=== PATIENT | female | born 1970 | race Caucasian/White ===

== ENCOUNTER 2020-11-26 16:25 | Inpatient (IN) | payer OTHER ==
[~2020-11-26 16:25] MED LIST: Iopamidol 370 76% 50 ML VIAL FS ONE
[2020-11-26] MEDS ORDERED: Boostrix 0.5 ML (Tdap) VIAL ONE (16:31)
[2020-11-26] MEDS ORDERED: Calcium Chloride 1 GM/10 ML Abboject SYRINGE ONE (16:39)
[2020-11-26 16:44] LABS: #Eosinphils 0.2 thou/uL (0.0-0.7); #Lymphocytes 1.7 thou/uL (1.20-3.40); #Monocytes 1.1 thou/uL (0.11-0.59); #Neutrophils 14.2 thou/uL (1.40-6.50); %Basophils 0.3 % (0.0-1.0); %Eosinophils 1.4 % (0.0-10.0); %Lymphocytes 10.1 % (21.0-51.0); %Monocytes 6.1 % (0.0-10.0); %Neutrophils 82.2 % (42.0-75.0); Hemoglobin 12.2 g/dL (12.0-16.0); Mean Corpuscular HGB CONC 34.2 g/dL (32.0-36.0); Mean Corpuscular Hemoglobin 33.8 pg (27.0-31.0); Mean Corpuscular Volume 98.9 fL (78.0-98.0); Mean Platelet Volume 7.9 fL (7.4-10.4); Platelet Count 240 thou/uL (130-400); RBC Distribution Width 10.5 % (11.5-14.5); Red Blood Cell (RBC) Count 3.62 mill/uL (4.20-5.40); White Blood Cell (WBC) Count 17.2 thou/uL (4.8-10.8)
[2020-11-26] MEDS ORDERED: Vecuronium 10 MG VIAL ONE (16:46)
[2020-11-26] MEDS ORDERED: Fentanyl 100 MCG/2 ML VIAL ONE ×2 (16:46→18:18)
[2020-11-26] MEDS ORDERED: Midazolam HCl 5 mg/ml Vial ONE (16:46)
[2020-11-26 17:00] LABS: INR-International Normal Ratio 1.1; PTT 24.5 sec (22.9-36.1); Prothrombin Time 14.2 sec (12.0-14.7)
[2020-11-26 17:02] LABS: ALT (SGPT) 32 U/L (8-55); AST (SGOT) 62 U/L (5-34); Albumin 3.4 g/dL (3.5-5.0); Alkaline Phosphatase 54 U/L (40-110); Anion Gap 15 mmol/L (10-20); BUN (Urea Nitrogen) 15 mg/dL (9.8-20.1); Bilirubin, Total 0.4 mg/dL (0.2-1.2); Calc. Creatinine Clearance 0 mL/min (70-130); Calcium 8.4 mg/dL (7.8-10.44); Carbon Dioxide 22 mmol/L (22-29); Chloride 106 mmol/L (98-107); Globulin 2.4 g/dL (2.4-3.5); Glucose 162 mg/dL (70-105); Potassium 3.6 mmol/L (3.5-5.1); Protein, Total 5.8 g/dL (6.0-8.3); Sodium 139 mmol/L (136-145)
[2020-11-26 17:03] LABS: Acetaminophen Less than 6.0 mcg/mL (10.0-30.0); Alcohol Less than 10 mg/dL (Less than 10); CK (CPK) 487 U/L (29-168); Salicylate Less than 8.0 mg/dL (15.0-30.0)
[2020-11-26 17:16] LABS: Analyzer IN Cardio ER; Base Excess (BEa) -3.4 mEq/L (-2.0 to +3.0); Carboxyhemoglobin (COHb) 0.3 gm% (0.0-3.0); Hemoglobin (Hb) 12.6 g/dL (12.0-16.0); O2 Tension (PaO2), arterial 385.6 mmHg (80.0-100.0); Potassium - ABG Lab 3.31 mmol/L (3.70-5.30); pH, Arterial 7.43 (7.35-7.45)
[2020-11-26 17:17] LABS: Puncture Site RRA
[2020-11-26 17:40] LABS: Bilirubin Negative (Negative); Blood, Urine 2+ (Negative); Clarity Turbid (Clear); Glucose, Urine (Dipstick) 70 mg/dL (Negative); Ketone, Urine Negative (Negative); Leukocyte Negative Leu/uL (Negative); Nitrite Negative (Negative); Protein, Urine (Dipstick) 100 mg/dL (Neg-Trace); Specific Gravity, Urine 1.021 (1.002-1.036); Squamous Epithelial None Seen HPF (0-3); Urobilinogen Normal mg/dL (Less than 2)
[2020-11-26 17:41] LABS: Bacteria/HPF 1+ HPF (None Seen)
[2020-11-26] MEDS ORDERED: Dextrose 50% Abboject 50 ML SYRINGE SLOW IVP PRN (18:07)
[2020-11-26] MEDS ORDERED: Ondansetron PF 4 MG/2 ML Vial IVP PRN (18:07)
[2020-11-26] MEDS ORDERED: hydrALAZINE 20 MG/ML VIAL SLOW IVP PRN (18:07)
[2020-11-26] MEDS ORDERED: Dextrose 5% in Water 1,000 ML IV PRN (18:07)
[2020-11-26] MEDS ORDERED: Ventilator Sedation Protocol 1 EACH FS ONE (18:19)
[2020-11-26] MEDS ORDERED: Acetaminophen 650 MG Suppository PR PRN (18:20)
[2020-11-26] MEDS ORDERED: DISCONTINUE PREVIOUS NARCOTIC PAIN MEDICATIONS AND BENZODIAZEPINES FS SCH (18:30)
[2020-11-26] MEDS ORDERED: Fentanyl CADD 100 ML IV SCH (18:30)
[2020-11-26] MEDS ORDERED: Propofol 1,000 MG/100 ML VIAL IV PRN (18:30)
[2020-11-26] MEDS ORDERED: Morphine 2 MG/ML VIAL SLOW IVP PRN (18:30)
[2020-11-26] MEDS ORDERED: Fentanyl BOLUS 250 ML IVPB PRN (18:30)
[2020-11-26] MEDS ORDERED: Lorazepam 2 MG/ML VIAL SLOW IVP PRN (18:30)
[2020-11-26] MEDS ORDERED: Propofol BOLUS 1,000 MG/100 ML VIAL IV PRN (18:30)
[2020-11-26 18:37] LABS: SARS-CoV-2 NAA Rapid Test Not Detected (NotDetected)
[2020-11-26 18:43] LABS: Magnesium 1.7 mg/dL (1.6-2.6); Phosphorus 3.6 mg/dL (2.3-4.7)
[2020-11-26 19:45] LABS: Base Excess (BEa) -3.2 mEq/L (-2.0 to +3.0); Calcium, Ionized (arterial) 1.27 mmol/L (1.12-1.30); Carboxyhemoglobin (COHb) 0.3 gm% (0.0-3.0); Hemoglobin (Hb) 14.2 g/dL (12.0-16.0); O2 Tension (PaO2), arterial 143.6 mmHg (80.0-100.0); Potassium - ABG Lab 3.32 mmol/L (3.70-5.30); pH, Arterial 7.47 (7.35-7.45)
[2020-11-26] MEDS ORDERED: Famotidine 20 MG TAB PO SCH (21:00)
[2020-11-26] MEDS ORDERED: Fentanyl CADD 100 ML ONE (21:06)
[2020-11-26] MEDS: Sodium Chloride 0.9% 1,000 ML IV SCH (21:11)
[2020-11-26 22:58] LABS: Puncture Site RRA
[2020-11-27] MEDS: CEFAZOLIN 2 GM in Premix Bag 1 BAG IVPB SCH ×3 (00:31→16:51)
[2020-11-27] MEDS ORDERED: CEFAZOLIN 2 GM in Premix Bag 1 BAG IVPB SCH (01:00)
[2020-11-27] MEDS: Sodium Chloride 0.9% 1,000 ML IV SCH ×3 (03:34→20:07)
[2020-11-27 03:40] LABS: #Lymphocytes 0.6 thou/uL (1.20-3.40); #Monocytes 1.2 thou/uL (0.11-0.59); #Neutrophils 9.5 thou/uL (1.40-6.50); %Eosinophils 0.2 % (0.0-10.0); %Monocytes 10.3 % (0.0-10.0); %Neutrophils 84.6 % (42.0-75.0); Hemoglobin 12.1 g/dL (12.0-16.0); Mean Corpuscular HGB CONC 33.6 g/dL (32.0-36.0); Mean Corpuscular Hemoglobin 32.6 pg (27.0-31.0); Mean Corpuscular Volume 97.1 fL (78.0-98.0); Mean Platelet Volume 7.9 fL (7.4-10.4); Platelet Count 161 thou/uL (130-400); RBC Distribution Width 11.3 % (11.5-14.5); Red Blood Cell (RBC) Count 3.72 mill/uL (4.20-5.40); White Blood Cell (WBC) Count 11.2 thou/uL (4.8-10.8)
[2020-11-27 03:47] LABS: INR-International Normal Ratio 1.1; PTT 27.9 sec (22.9-36.1); Prothrombin Time 14.5 sec (12.0-14.7)
[2020-11-27 04:03] LABS: Phosphorus 4.3 mg/dL (2.3-4.7)
[2020-11-27 04:05] LABS: Anion Gap 13 mmol/L (10-20); BUN (Urea Nitrogen) 15 mg/dL (9.8-20.1); Calc. Creatinine Clearance 91 mL/min (70-130); Calcium 8.3 mg/dL (7.8-10.44); Carbon Dioxide 22 mmol/L (22-29); Chloride 108 mmol/L (98-107); Glucose 164 mg/dL (70-105); Magnesium 1.5 mg/dL (1.6-2.6); Potassium 3.4 mmol/L (3.5-5.1); Sodium 140 mmol/L (136-145)
[2020-11-27] MEDS: Magnesium 2 GM/50 ML 2 GM in Premix Bag 1 BAG IVPB SCH ×2 (06:28→07:52)
[2020-11-27] MEDS ORDERED: Potassium Chloride 40 MEQ in Premix Bag 1 BAG IVPB SCH (06:30)
[2020-11-27 07:54] LABS: Actual Bicarbonate (HCO3a) 21.7 mEq/L (22-28); Base Excess (BEa) -1.5 mEq/L (-2.0 to +3.0); Calcium, Ionized (arterial) 1.15 mmol/L (1.12-1.30); Carboxyhemoglobin (COHb) 0.2 gm% (0.0-3.0); Hemoglobin (Hb) 13.3 g/dL (12.0-16.0); O2 Tension (PaO2), arterial 116.5 mmHg (80.0-100.0); Potassium - ABG Lab 3.71 mmol/L (3.70-5.30); pH, Arterial 7.45 (7.35-7.45)
[2020-11-27 07:55] LABS: Puncture Site RRA
[2020-11-27] MEDS: Famotidine/PF 20 mg/2ml Vial SLOW IVP SCH ×2 (08:48→20:07)
[2020-11-27] MEDS ORDERED: Prevnar 13-Val Conj/PF 0.5 ML SYRINGE IM ONE (09:00)
[2020-11-27] MEDS ORDERED: Fentanyl 100 MCG/2 ML VIAL ONE (13:40)
[2020-11-27] MEDS ORDERED: PHENYLEPHRINE-NS 100 MCG/ML 10 ML SYRINGE ONE (14:10)
[2020-11-27] MEDS ORDERED: Rocuronium Bromide 10 MG/ML (10ML VIAL) ONE (14:10)
[2020-11-27] MEDS ORDERED: PROPOFOL 200 MG/20 ML VIAL ONE (14:10)
[2020-11-27] MEDS ORDERED: ePHEDrine Sulfate 50 MG/10 ML VIAL ONE (14:10)
[2020-11-28] MEDS: CEFAZOLIN 2 GM in Premix Bag 1 BAG IVPB SCH ×3 (01:15→17:36)
[2020-11-28] MEDS: Sodium Chloride 0.9% 1,000 ML IV SCH ×3 (04:59→20:00)
[2020-11-28 07:56] LABS: #Eosinphils 0.2 thou/uL (0.0-0.7); #Lymphocytes 0.9 thou/uL (1.20-3.40); #Monocytes 0.9 thou/uL (0.11-0.59); #Neutrophils 5.7 thou/uL (1.40-6.50); %Basophils 0.3 % (0.0-1.0); %Lymphocytes 11.4 % (21.0-51.0); %Monocytes 11.9 % (0.0-10.0); %Neutrophils 74.4 % (42.0-75.0); Hemoglobin 8.8 g/dL (12.0-16.0); Mean Corpuscular HGB CONC 33.2 g/dL (32.0-36.0); Mean Corpuscular Hemoglobin 32.8 pg (27.0-31.0); Mean Corpuscular Volume 98.7 fL (78.0-98.0); Platelet Count 131 thou/uL (130-400); RBC Distribution Width 11.5 % (11.5-14.5); Red Blood Cell (RBC) Count 2.67 mill/uL (4.20-5.40); White Blood Cell (WBC) Count 7.7 thou/uL (4.8-10.8)
[2020-11-28 08:11] LABS: Anion Gap 9 mmol/L (10-20); BUN (Urea Nitrogen) 11 mg/dL (9.8-20.1); Calc. Creatinine Clearance 116 mL/min (70-130); Calcium 7.6 mg/dL (7.8-10.44); Carbon Dioxide 22 mmol/L (22-29); Chloride 111 mmol/L (98-107); Glucose 170 mg/dL (70-105); Magnesium 2.4 mg/dL (1.6-2.6); Phosphorus 1.6 mg/dL (2.3-4.7); Potassium 3.8 mmol/L (3.5-5.1); Sodium 138 mmol/L (136-145)
[2020-11-28] MEDS: Famotidine/PF 20 mg/2ml Vial SLOW IVP SCH ×2 (08:49→20:00)
[2020-11-28] MEDS ORDERED: Potassium Phosphate 30 MMOL in Sodium Chloride 0.9% 250 ML 250 ML IVPB SCH (09:00)
[2020-11-28] MEDS ORDERED: Morphine 4 MG/ML VIAL SLOW IVP PRN ×2 (19:08→22:41)
[2020-11-28] MEDS ORDERED: Morphine 4 MG/ML VIAL SLOW IVP SCH (23:15)
[2020-11-29] MEDS: CEFAZOLIN 2 GM in Premix Bag 1 BAG IVPB SCH ×3 (01:24→17:19)
[2020-11-29] MEDS ORDERED: Morphine 4 MG/ML VIAL SLOW IVP PRN ×2 (01:28→02:18)
[2020-11-29 07:59] LABS: #Eosinphils 0.1 thou/uL (0.0-0.7); #Lymphocytes 0.9 thou/uL (1.20-3.40); #Monocytes 0.8 thou/uL (0.11-0.59); %Basophils 0.4 % (0.0-1.0); %Eosinophils 1.2 % (0.0-10.0); %Lymphocytes 10.3 % (21.0-51.0); %Neutrophils 79.2 % (42.0-75.0); Hemoglobin 8.6 g/dL (12.0-16.0); Mean Corpuscular HGB CONC 33.7 g/dL (32.0-36.0); Mean Corpuscular Hemoglobin 33.4 pg (27.0-31.0); Mean Corpuscular Volume 99.1 fL (78.0-98.0); Mean Platelet Volume 8.1 fL (7.4-10.4); Platelet Count 131 thou/uL (130-400); RBC Distribution Width 11.2 % (11.5-14.5); Red Blood Cell (RBC) Count 2.59 mill/uL (4.20-5.40); White Blood Cell (WBC) Count 8.8 thou/uL (4.8-10.8)
[2020-11-29 08:24] LABS: Anion Gap 11 mmol/L (10-20); BUN (Urea Nitrogen) 7 mg/dL (9.8-20.1); Calc. Creatinine Clearance 126 mL/min (70-130); Calcium 8.2 mg/dL (7.8-10.44); Carbon Dioxide 25 mmol/L (22-29); Chloride 111 mmol/L (98-107); Glucose 131 mg/dL (70-105); Magnesium 2.1 mg/dL (1.6-2.6); Phosphorus 1.1 mg/dL (2.3-4.7); Potassium 3.3 mmol/L (3.5-5.1); Sodium 144 mmol/L (136-145)
[2020-11-29] MEDS ORDERED: Potassium Phosphate 30 MMOL in Sodium Chloride 0.9% 250 ML 250 ML IVPB SCH (08:30)
[2020-11-29] MEDS: Famotidine/PF 20 mg/2ml Vial SLOW IVP SCH ×2 (09:09→20:26)
[2020-11-29] MEDS ORDERED: Morphine 4 MG/ML VIAL ONE ×3 (12:16→12:17)
[2020-11-29] MEDS ORDERED: Morphine 4 MG/ML VIAL SLOW IVP SCH (12:45)
[2020-11-29] MEDS: Sodium Chloride 0.9% 1,000 ML IV SCH (12:45)
[2020-11-30] MEDS: CEFAZOLIN 2 GM in Premix Bag 1 BAG IVPB SCH ×3 (00:52→16:47)
[2020-11-30 04:30] LABS: #Basophils 0.1 thou/uL (0.0-0.2); #Eosinphils 0.1 thou/uL (0.0-0.7); #Lymphocytes 1.3 thou/uL (1.20-3.40); #Monocytes 0.9 thou/uL (0.11-0.59); #Neutrophils 7.3 thou/uL (1.40-6.50); %Basophils 0.6 % (0.0-1.0); %Eosinophils 1.5 % (0.0-10.0); %Lymphocytes 13.5 % (21.0-51.0); %Monocytes 8.9 % (0.0-10.0); %Neutrophils 75.5 % (42.0-75.0); Hemoglobin 9.5 g/dL (12.0-16.0); Mean Corpuscular HGB CONC 33.4 g/dL (32.0-36.0); Mean Corpuscular Hemoglobin 32.7 pg (27.0-31.0); Mean Corpuscular Volume 97.9 fL (78.0-98.0); Mean Platelet Volume 7.8 fL (7.4-10.4); Platelet Count 191 thou/uL (130-400); RBC Distribution Width 11.1 % (11.5-14.5); Red Blood Cell (RBC) Count 2.89 mill/uL (4.20-5.40); White Blood Cell (WBC) Count 9.7 thou/uL (4.8-10.8)
[2020-11-30 05:17] LABS: Anion Gap 11 mmol/L (10-20); BUN (Urea Nitrogen) 7 mg/dL (9.8-20.1); Calc. Creatinine Clearance 124 mL/min (70-130); Carbon Dioxide 26 mmol/L (22-29); Chloride 107 mmol/L (98-107); Glucose 152 mg/dL (70-105); Magnesium 2.1 mg/dL (1.6-2.6); Phosphorus 1.5 mg/dL (2.3-4.7); Potassium 3.1 mmol/L (3.5-5.1); Sodium 141 mmol/L (136-145)
[2020-11-30] MEDS ORDERED: Potassium Phosphate 30 MMOL in Sodium Chloride 0.9% 250 ML 250 ML IVPB SCH (06:00)
[2020-11-30] MEDS: Sodium Chloride 0.9% 1,000 ML IV SCH (07:43)
[2020-11-30] MEDS: Famotidine/PF 20 mg/2ml Vial SLOW IVP SCH (07:44)
[2020-11-30] MEDS: Amantadine HCl 100 mg Capsule PO SCH ×2 (09:16→20:10)
[2020-11-30] MEDS: Famotidine 20 MG TAB PO SCH ×2 (09:16→20:10)
[2020-12-01] MEDS: CEFAZOLIN 2 GM in Premix Bag 1 BAG IVPB SCH ×3 (01:09→17:52)
[2020-12-01 04:33] LABS: Anion Gap 12 mmol/L (10-20); BUN (Urea Nitrogen) 13 mg/dL (9.8-20.1); Calc. Creatinine Clearance 122 mL/min (70-130); Calcium 9.1 mg/dL (7.8-10.44); Carbon Dioxide 27 mmol/L (22-29); Chloride 102 mmol/L (98-107); Glucose 165 mg/dL (70-105); Magnesium 1.8 mg/dL (1.6-2.6); Phosphorus 2.8 mg/dL (2.3-4.7); Sodium 138 mmol/L (136-145)
[2020-12-01] MEDS: Amantadine HCl 100 mg Capsule PO SCH ×2 (07:47→21:37)
[2020-12-01] MEDS: Famotidine 20 MG TAB PO SCH ×2 (07:47→21:37)
[2020-12-01] MEDS ORDERED: Magnesium 2 GM/50 ML 2 GM in Premix Bag 1 BAG IVPB SCH (08:45)
[2020-12-01] MEDS: Bisacodyl 5 MG TAB PO SCH (09:32)
[2020-12-01] MEDS: Potassium Chloride 20 MEQ in Premix Bag 1 BAG IVPB SCH ×2 (09:32→12:41)
[2020-12-01] MEDS: Docusate 100 MG CAP PO SCH ×2 (09:32→21:37)
[2020-12-01] MEDS ORDERED: Haloperidol Lactate 5 MG/ML VIAL SLOW IVP SCH (20:00)
[2020-12-02] MEDS: CEFAZOLIN 2 GM in Premix Bag 1 BAG IVPB SCH ×3 (00:10→18:29)
[2020-12-02] MEDS: Enoxaparin Sodium 40 MG/0.4 ML SYRINGE SC SCH (09:03)
[2020-12-02] MEDS: Docusate 100 MG CAP PO SCH ×2 (09:03→20:19)
[2020-12-02] MEDS: Saccharomyces boulardii 250 MG CAP PO SCH (09:03)
[2020-12-02] MEDS: Famotidine 20 MG TAB PO SCH ×2 (09:03→20:19)
[2020-12-02] MEDS: Bisacodyl 5 MG TAB PO SCH (09:03)
[2020-12-02] MEDS: Amantadine HCl 100 mg Capsule PO SCH ×2 (09:03→20:18)
[2020-12-02 11:54] LABS: #Eosinphils 0.2 thou/uL (0.0-0.7); #Lymphocytes 1.9 thou/uL (1.20-3.40); #Monocytes 1.1 thou/uL (0.11-0.59); #Neutrophils 7.9 thou/uL (1.40-6.50); %Basophils 0.4 % (0.0-1.0); %Eosinophils 1.8 % (0.0-10.0); %Lymphocytes 16.9 % (21.0-51.0); %Monocytes 10.2 % (0.0-10.0); %Neutrophils 70.7 % (42.0-75.0); Mean Corpuscular Hemoglobin 32.6 pg (27.0-31.0); Mean Corpuscular Volume 95.8 fL (78.0-98.0); Mean Platelet Volume 7.6 fL (7.4-10.4); Platelet Count 297 thou/uL (130-400); Red Blood Cell (RBC) Count 3.36 mill/uL (4.20-5.40); White Blood Cell (WBC) Count 11.1 thou/uL (4.8-10.8)
[2020-12-02 12:20] LABS: Anion Gap 12 mmol/L (10-20); BUN (Urea Nitrogen) 23 mg/dL (9.8-20.1); Calc. Creatinine Clearance 121 mL/min (70-130); Calcium 9.1 mg/dL (7.8-10.44); Carbon Dioxide 28 mmol/L (22-29); Chloride 101 mmol/L (98-107); Glucose 182 mg/dL (70-105); Magnesium 2.1 mg/dL (1.6-2.6); Phosphorus 3.6 mg/dL (2.3-4.7); Potassium 3.7 mmol/L (3.5-5.1); Sodium 137 mmol/L (136-145)
[2020-12-02] MEDS: Haloperidol Lactate 5 MG/ML VIAL SLOW IVP PRN (12:24)
[2020-12-02 16:15] LABS: RBC/HPF Greater than 50 HPF (0-3); Squamous Epithelial None Seen HPF (0-3)
[2020-12-02 16:17] LABS: Bilirubin Negative (Negative); Blood, Urine 1+ (Negative); Clarity Extra Turbid (Clear); Glucose, Urine (Dipstick) 30 mg/dL (Negative); Ketone, Urine Negative (Negative); Leukocyte 25 Leu/uL (Negative); Nitrite Negative (Negative); Protein, Urine (Dipstick) 100 mg/dL (Neg-Trace); Specific Gravity, Urine 1.029 (1.002-1.036); pH, Urine 6.5 (5.0-9.0)
[2020-12-02 16:31] LABS: Bacteria/HPF 2+ HPF (None Seen); Mucous/LPF Rare LPF (<2+); Yeast-Budding Rare HPF (None Seen)
[2020-12-02 16:32] LABS: Urine Culture Reflex Yes Yes
[2020-12-02] MEDS: Cefepime 2 GM in Sodium Chloride 0.9% 100 ML IVPB SCH (22:51)
[2020-12-03 05:37] LABS: #Basophils 0.1 thou/uL (0.0-0.2); #Eosinphils 0.3 thou/uL (0.0-0.7); #Lymphocytes 2.3 thou/uL (1.20-3.40); #Monocytes 1.3 thou/uL (0.11-0.59); #Neutrophils 8.3 thou/uL (1.40-6.50); %Basophils 0.7 % (0.0-1.0); %Eosinophils 2.6 % (0.0-10.0); %Lymphocytes 18.6 % (21.0-51.0); %Monocytes 10.3 % (0.0-10.0); %Neutrophils 67.9 % (42.0-75.0); Hemoglobin 10.9 g/dL (12.0-16.0); Mean Corpuscular HGB CONC 31.4 g/dL (32.0-36.0); Mean Corpuscular Hemoglobin 30.2 pg (27.0-31.0); Mean Corpuscular Volume 96.2 fL (78.0-98.0); Mean Platelet Volume 7.4 fL (7.4-10.4); Platelet Count 343 thou/uL (130-400); RBC Distribution Width 11.2 % (11.5-14.5); Red Blood Cell (RBC) Count 3.59 mill/uL (4.20-5.40); White Blood Cell (WBC) Count 12.2 thou/uL (4.8-10.8)
[2020-12-03 06:00] LABS: Anion Gap 13 mmol/L (10-20); BUN (Urea Nitrogen) 20 mg/dL (9.8-20.1); Calc. Creatinine Clearance 121 mL/min (70-130); Calcium 9.3 mg/dL (7.8-10.44); Carbon Dioxide 26 mmol/L (22-29); Chloride 104 mmol/L (98-107); Glucose 127 mg/dL (70-105); Phosphorus 3.5 mg/dL (2.3-4.7); Potassium 3.9 mmol/L (3.5-5.1); Sodium 139 mmol/L (136-145)
[2020-12-03] MEDS: Enoxaparin Sodium 40 MG/0.4 ML SYRINGE SC SCH (08:44)
[2020-12-03] MEDS ORDERED: Morphine 2 MG/ML VIAL SLOW IVP PRN (09:28)
[2020-12-03] MEDS ORDERED: Morphine 4 MG/ML VIAL SLOW IVP PRN (09:46)
[2020-12-03] MEDS: Amantadine HCl 100 mg Capsule PO SCH ×2 (14:40→21:01)
[2020-12-03] MEDS: Docusate 100 MG CAP PO SCH ×2 (14:41→21:01)
[2020-12-03] MEDS: Bisacodyl 5 MG TAB PO SCH (14:41)
[2020-12-03] MEDS: Saccharomyces boulardii 250 MG CAP PO SCH (14:42)
[2020-12-03] MEDS: Famotidine 20 MG TAB PO SCH ×2 (14:42→21:01)
[2020-12-03] MEDS: Cefepime 2 GM in Sodium Chloride 0.9% 100 ML IVPB SCH ×2 (14:45→21:01)
[2020-12-04] MEDS: Bisacodyl 5 MG TAB PO SCH (09:21)
[2020-12-04] MEDS: Famotidine 20 MG TAB PO SCH ×2 (09:21→20:54)
[2020-12-04] MEDS: Saccharomyces boulardii 250 MG CAP PO SCH (09:21)
[2020-12-04] MEDS: Amantadine HCl 100 mg Capsule PO SCH ×2 (09:21→20:54)
[2020-12-04] MEDS: Enoxaparin Sodium 40 MG/0.4 ML SYRINGE SC SCH (09:21)
[2020-12-04] MEDS: Cefepime 2 GM in Sodium Chloride 0.9% 100 ML IVPB SCH (09:22)
[2020-12-04] MEDS: Docusate Sodium 100 MG/10 ML UDCUP PO SCH ×2 (10:03→20:54)
[2020-12-04] MEDS: Docusate 100 MG CAP PO SCH (13:11)
[2020-12-04] MEDS: CEFAZOLIN 2 GM in Premix Bag 1 BAG IVPB SCH (16:08)
[2020-12-05] MEDS: CEFAZOLIN 2 GM in Premix Bag 1 BAG IVPB SCH ×4 (00:52→23:38)
[2020-12-05] MEDS: Saccharomyces boulardii 250 MG CAP PO SCH (09:11)
[2020-12-05] MEDS: Famotidine 20 MG TAB PO SCH (09:11)
[2020-12-05] MEDS: Docusate Sodium 100 MG/10 ML UDCUP PO SCH ×2 (09:11→20:18)
[2020-12-05] MEDS: Bisacodyl 5 MG TAB PO SCH (09:11)
[2020-12-05] MEDS: Enoxaparin Sodium 40 MG/0.4 ML SYRINGE SC SCH (09:12)
[2020-12-05] MEDS: Amantadine HCl 100 mg Capsule PO SCH ×2 (09:12→20:18)
[2020-12-06] MEDS: Docusate Sodium 100 MG/10 ML UDCUP PO SCH ×2 (09:55→20:39)
[2020-12-06] MEDS: Saccharomyces boulardii 250 MG CAP PO SCH (09:55)
[2020-12-06] MEDS: Bisacodyl 5 MG TAB PO SCH (09:55)
[2020-12-06] MEDS: Amantadine HCl 100 mg Capsule PO SCH ×2 (09:55→20:39)
[2020-12-06] MEDS: Enoxaparin Sodium 40 MG/0.4 ML SYRINGE SC SCH (09:55)
[2020-12-06] MEDS: CEFAZOLIN 2 GM in Premix Bag 1 BAG IVPB SCH ×3 (09:56→23:19)
[2020-12-06] MEDS: Bisacodyl 10 MG SUPP PR SCH (10:05)
[2020-12-06 13:38] VITALS: BMI 28.4
[2020-12-06] MEDS ORDERED: Acetaminophen 650 MG/20.3 ML UDCUP PO PRN (15:05)
[2020-12-06] MEDS: Haloperidol Lactate 5 MG/ML VIAL SLOW IVP PRN (22:34)
[2020-12-07] MEDS: Saccharomyces boulardii 250 MG CAP PO SCH (08:56)
[2020-12-07] MEDS: Amantadine HCl 100 mg Capsule PO SCH (08:56)
[2020-12-07] MEDS: Bisacodyl 10 MG SUPP PR SCH (08:57)
[2020-12-07] MEDS: Docusate Sodium 100 MG/10 ML UDCUP PO SCH (08:57)
[2020-12-07] MEDS: Bisacodyl 5 MG TAB PO SCH (08:58)
[2020-12-07] MEDS: Enoxaparin Sodium 40 MG/0.4 ML SYRINGE SC SCH (08:58)
[2020-12-07 12:27] VITALS: TEMP 98.5
[2020-12-07 15:42] VITALS: BP 131/84
[2020-12-08] MEDS ORDERED: Cephalexin 250 MG CAP PO SCH (06:00)
== END 2020-12-07 18:46 | DRG 957 ==
LOC: ERS 16:25 → CCU 16:59 → SURG A 12-01 13:55
PROVIDERS: ADMIT Surgery; ATTEND Surgery
PROC: 5A1945Z Respiratory Ventilation, 24-96 Consecutive Hours (ICD-10-PCS; 2020-11-26)
PROC: 30233N1 Transfusion of Nonautologous Red Blood Cells into Peripheral Vein, Percutaneous Approach (ICD-10-PCS; 2020-11-26)
PROC: 0D9670Z Drainage of Stomach with Drainage Device, Via Natural or Artificial Opening (ICD-10-PCS; 2020-11-26)
PROC: 02H633Z Insertion of Infusion Device into Right Atrium, Percutaneous Approach (ICD-10-PCS; 2020-11-26)
PROC: 0PSL04Z Reposition Left Ulna with Internal Fixation Device, Open Approach (ICD-10-PCS; principal; 2020-11-27)
PROC: 0PSJ04Z Reposition Left Radius with Internal Fixation Device, Open Approach (ICD-10-PCS; 2020-11-27)
PROC: 0DH67UZ Insertion of Feeding Device into Stomach, Via Natural or Artificial Opening (ICD-10-PCS; 2020-11-29)
DX: S52.612B Displaced fracture of left ulna styloid process, initial encounter for open fracture type I or II (principal); J96.00 Acute respiratory failure, unspecified whether with hypoxia or hypercapnia; S06.1X9A Traumatic cerebral edema with loss of consciousness of unspecified duration, initial encounter; S06.6X9A Traumatic subarachnoid hemorrhage with loss of consciousness of unspecified duration, initial encounter; R40.2111 Coma scale, eyes open, never, in the field [EMT or ambulance]; S06.5X9A Traumatic subdural hemorrhage with loss of consciousness of unspecified duration, initial encounter; R57.8 Other shock; R40.2311 Coma scale, best motor response, none, in the field [EMT or ambulance]; R40.2211 Coma scale, best verbal response, none, in the field [EMT or ambulance]; S12.000A Unspecified displaced fracture of first cervical vertebra, initial encounter for closed fracture; S12.100A Unspecified displaced fracture of second cervical vertebra, initial encounter for closed fracture; S02.40CA Maxillary fracture, right side, initial encounter for closed fracture; S02.40FA Zygomatic fracture, left side, initial encounter for closed fracture; S02.19XA Other fracture of base of skull, initial encounter for closed fracture; S36.892A Contusion of other intra-abdominal organs, initial encounter; S22.43XA Multiple fractures of ribs, bilateral, initial encounter for closed fracture; S27.0XXA Traumatic pneumothorax, initial encounter; S27.321A Contusion of lung, unilateral, initial encounter; G96.08 Other cranial cerebrospinal fluid leak; Z23 Encounter for immunization; Z20.822 Contact with and (suspected) exposure to COVID-19; S52.592B Other fractures of lower end of left radius, initial encounter for open fracture type I or II; T79.6XXA Traumatic ischemia of muscle, initial encounter; V49.88XA Car occupant (driver) (passenger) injured in other specified transport accidents, initial encounter; Y92.410 Unspecified street and highway as the place of occurrence of the external cause; Z78.1 Physical restraint status
CPT/HCPCS: 29125; 36415; 36416; 36430; 36600; 51702; 70450; 70486; 70498; 71045; 71260; 72125; 72141; 74018; 74177; 76000; 80048; 80053; 80307; 81001; 81003; 81015; 82550; 82805; 83605; 83735; 84100; 85025; 85610; 85730; 86850; 86900; 86901; 87086; 90471; 90715; 93970; 94002; 94003; 96365; 96375; C1713; G0390; J0690; J0692; J1630; J1650; J2250; J2270; J2704; J3010; J3475; J3480; J3490; J7050; P9016; Q9967; S0028; U0002

== ENCOUNTER 2020-12-17 01:47 | Inpatient (IN) | payer OTHER ==
[2020-12-17] MEDS ORDERED: Ondansetron PF 4 MG/2 ML Vial IVP PRN (03:12)
[2020-12-17] MEDS ORDERED: Acetaminophen 325 MG TAB PO PRN ×2 (03:13→11:22)
[2020-12-17] MEDS: Sodium Chloride 0.9% 1,000 ML IV SCH ×2 (03:19→15:55)
[2020-12-17 05:20] LABS: SARS-CoV-2 NAA Rapid Test Not Detected (NotDetected)
[2020-12-17 07:19] VITALS: BMI 24.2
[2020-12-17] MEDS ORDERED: CEFAZOLIN 2 GM in Premix Bag 1 BAG IVPB SCH (07:30)
[2020-12-17 07:35] LABS: #Basophils 0.1 thou/uL (0.0-0.2); #Eosinphils 0.2 thou/uL (0.0-0.7); #Monocytes 0.4 thou/uL (0.11-0.59); #Neutrophils 2.5 thou/uL (1.40-6.50); %Basophils 1.2 % (0.0-1.0); %Eosinophils 4.2 % (0.0-10.0); %Lymphocytes 24.1 % (21.0-51.0); %Monocytes 10.5 % (0.0-10.0); %Neutrophils 59.9 % (42.0-75.0); Hemoglobin 11.3 g/dL (12.0-16.0); Mean Corpuscular HGB CONC 34.1 g/dL (32.0-36.0); Mean Corpuscular Hemoglobin 33.9 pg (27.0-31.0); Mean Corpuscular Volume 99.4 fL (78.0-98.0); Mean Platelet Volume 7.2 fL (7.4-10.4); Platelet Count 427 thou/uL (130-400); RBC Distribution Width 12.2 % (11.5-14.5); Red Blood Cell (RBC) Count 3.34 mill/uL (4.20-5.40); White Blood Cell (WBC) Count 4.2 thou/uL (4.8-10.8)
[2020-12-17 07:54] LABS: Anion Gap 12 mmol/L (10-20); BUN (Urea Nitrogen) 9 mg/dL (9.8-20.1); CRP (Inflammatory) Less than 0.50 mg/dL (= or < 0.5); Calc. Creatinine Clearance 99 mL/min (70-130); Calcium 8.8 mg/dL (7.8-10.44); Carbon Dioxide 24 mmol/L (22-29); Chloride 107 mmol/L (98-107); Glucose 106 mg/dL (70-105); Potassium 3.5 mmol/L (3.5-5.1); Sodium 139 mmol/L (136-145)
[2020-12-17] MEDS ORDERED: Ondansetron ODT 4 MG TAB PO PRN (11:01)
[2020-12-17 11:29] LABS: Bacteria/HPF None Seen HPF (None Seen); Bilirubin Negative (Negative); Blood, Urine Negative (Negative); Clarity Clear (Clear); Glucose, Urine (Dipstick) Normal (Negative); Ketone, Urine Negative (Negative); Leukocyte 75 Leu/uL (Negative); Nitrite Negative (Negative); Protein, Urine (Dipstick) Negative (Neg-Trace); RBC/HPF 0-3 HPF (0-3); Specific Gravity, Urine 1.019 (1.002-1.036); Squamous Epithelial 0-3 HPF (0-3); Urobilinogen Normal mg/dL (Less than 2)
[2020-12-17 11:31] LABS: Urine Culture Reflex Yes Yes
[2020-12-17] MEDS: Methocarbamol 500 MG TAB PO SCH ×2 (15:51→20:17)
[2020-12-17] MEDS: Senokot 8.6 MG TAB PO SCH (15:53)
[2020-12-17] MEDS ORDERED: Dextrose 5% in Water 1,000 ML IV PRN (16:51)
[2020-12-17] MEDS ORDERED: Dextrose 50% Abboject 50 ML SYRINGE SLOW IVP PRN (16:51)
[2020-12-17] MEDS ORDERED: hydrALAZINE 20 MG/ML VIAL SLOW IVP PRN (16:51)
[2020-12-17] MEDS: Amantadine HCl 100 mg Capsule PO SCH (20:17)
[2020-12-17] MEDS: Docusate Sodium 100 MG/10 ML UDCUP PO SCH (20:17)
[2020-12-17] MEDS: Lactinex Tablet PO SCH (20:49)
[2020-12-17] MEDS ORDERED: hydrOXYzine 25 MG TAB PO PRN (21:00)
[2020-12-17] MEDS ORDERED: traZODone HCl 50 MG TAB PO PRN (21:00)
[2020-12-17] MEDS ORDERED: Melatonin 3 MG TAB PO PRN (21:00)
[2020-12-18] MEDS: Morphine 4 MG/ML VIAL SLOW IVP PRN ×2 (02:16→08:46)
[2020-12-18] MEDS: Amantadine HCl 100 mg Capsule PO SCH ×2 (08:54→21:33)
[2020-12-18] MEDS: Methocarbamol 500 MG TAB PO SCH (08:54)
[2020-12-18] MEDS ORDERED: Cyclobenzaprine 10 MG TAB PO PRN (09:58)
[2020-12-18] MEDS ORDERED: Ibuprofen 200 MG TAB PO PRN (10:09)
[2020-12-18] MEDS: Sodium Chloride 0.9% 1,000 ML IV SCH (10:11)
[2020-12-18] MEDS: Senokot 8.6 MG TAB PO SCH (12:07)
[2020-12-18] MEDS: Enoxaparin Sodium 40 MG/0.4 ML SYRINGE SC SCH (12:07)
[2020-12-18] MEDS: Lactinex Tablet PO SCH ×2 (12:07→21:33)
[2020-12-18] MEDS: Docusate Sodium 100 MG/10 ML UDCUP PO SCH ×2 (12:07→21:33)
[2020-12-18] MEDS: Acetaminophen 325 MG TAB PO SCH ×2 (12:08→18:07)
[2020-12-18] MEDS: Bisacodyl 10 MG SUPP PR SCH (12:16)
[2020-12-19] MEDS: Acetaminophen 325 MG TAB PO SCH ×6 (06:05→18:00)
[2020-12-19] MEDS: Sodium Chloride 0.9% 1,000 ML IV SCH ×2 (06:51→07:58)
[2020-12-19] MEDS: Docusate Sodium 100 MG/10 ML UDCUP PO SCH ×2 (06:51→09:01)
[2020-12-19] MEDS: Amantadine HCl 100 mg Capsule PO SCH ×2 (06:51→09:00)
[2020-12-19] MEDS: Lactinex Tablet PO SCH ×2 (06:51→09:00)
[2020-12-19] MEDS: Enoxaparin Sodium 40 MG/0.4 ML SYRINGE SC SCH (09:01)
[2020-12-19] MEDS: Bisacodyl 10 MG SUPP PR SCH (09:02)
[2020-12-19] MEDS: Senokot 8.6 MG TAB PO SCH (13:24)
[2020-12-19 16:38] VITALS: BP 117/72; TEMP 98.9
== END 2020-12-19 18:36 | DRG 563 ==
LOC: SURG A 01:47
PROVIDERS: ADMIT Surgery; ATTEND Surgery
DX: S52.252A Displaced comminuted fracture of shaft of ulna, left arm, initial encounter for closed fracture (principal); E44.1 Mild protein-calorie malnutrition; Z20.822 Contact with and (suspected) exposure to COVID-19; V49.9XXA Car occupant (driver) (passenger) injured in unspecified traffic accident, initial encounter; Z68.24 Body mass index [BMI] 24.0-24.9, adult
CPT/HCPCS: 36415; 80048; 81001; 85025; 85652; 86140; 87086; J1650; J2270; U0002